=== PATIENT | male | born 1935 | race Caucasian/White ===

== ENCOUNTER 2018-12-04 07:53 | Emergency (ER) | payer MEDICARE, OTHER, SELFPAY ==
[2018-12-04 07:55] VITALS: BP 156/79; PULSE 105; RESP 16; TEMP 36.6; O2SAT 98; BMI 26.7
--- NOTE | 2018-12-04 08:08 | ED.VIS.GEN ---
History of Present Illness Chief Complaint: Constipation Informant: Patient Onset: Weeks - No bowel movement for 1 week Context: Gradual Onset Timing: Continuous Quality: No bowel movement Location: GI Current Severity: Moderate Maximum Severity: Moderate Worsened by: Nothing Relieved by: Nothing Associated Symptoms: No associated symptoms Narrative: Patient is an elderly male who presents with no bowel movement for 1 week. Patient states he is still passing gas. He states he passed gas this morning. There is no history of abdominal surgery. He is not had a bowel obstruction in the past. He denies nausea or vomiting. He denies abdominal pain or back pain. He states he took MiraLAX once a day until approximately 1 week ago. He did not take MiraLAX for 3 days. He resumed taking MiraLAX once a day. He states he has not had a bowel movement since discontinuing MiraLAX. He is still fluctuating. He has no symptoms or complaints presently other than no BM. Prior similar symptoms: No Recent Illness/Hospitalization: No Past Medical History - Allergies and Home Meds Allergies/Adverse Reactions: Allergies Penicillins [PCN] Allergy (Verified 12/04/18 07:55) Unknown Primary Care Physician: Felix Call MD [Primary Care Provider] - Surgical History: noncontributory, total hip arthroplasty Lives: Alone Smoking Status: Former smoker Alcohol: None Review of Systems General: Denies: Chills, Fever, Sweats Eyes: Denies: Visual changes - bilaterally, Blurred Vision - bilaterally, Diplopia ENT: Denies: Rhinorrhea, Sore throat Cardiovascular: Denies: Chest pain, Palpitations Respiratory: Denies: Dyspnea, Cough, Dyspnea on exertion Gastrointestinal: Reports: Constipation. Denies: Abdominal pain, Nausea, Vomiting, Diarrhea, Melena, Hematochezia Genitourinary: Denies: Dysuria, Hematuria, Frequency Musculoskeletal: Denies: Myalgias, Arthralgias, Neck pain, Back pain, Extremity Pain Skin: Denies: Rash, Wounds Neurological: Denies: Headache, Weakness, Numbness Allergy: Denies: Uticaria, Swelling of the mouth Physical Exam Vital Signs/Narrative: Vital Signs Temp Pulse Resp BP Pulse Ox 12/04/18 07:55 97.8 F 105 H 16 156/79 H 98 Inital Vital Signs reviewed: Yes General: Well nourished, Well developed, No Acute Distress Head: Normocephalic, Atraumatic Eyes: Perrl, EOMI. Negative for: Pale conjunctiva, Scleral icterus ENT: Moist mucous membranes, No rhinorrhea Neck: Supple, Nontender Cardiovascular: Regular rate, Regular rhythm, No murmurs Respiratory: No distress, CTA bilaterally, Chest nontender Abdomen: Soft, Nontender, Nondistended, No masses, Hypoactive bowel sounds. Negative for: Normal bowel sounds, Hepatomegaly, Splenomegaly, Mass Rectal: Guaiac negative, Nontender, - - Prostate is normal size and nontender. Minimal stool in rectal vault. Back: Nontender, Normal Inspection Extremities: Nontender, No edema Skin: Normal color, No rash. Negative for: Diaphoresis, Jaundice Neurological: Alert, Oriented x3, Cranial nerves II-XII grossly intact, Normal Strength, Normal Sensation Psychological: Normal affect, Normal Mood Diagnostic/Tx/Re-eval Chest X-Ray - ED: Read by ED Physician, - - 3 view abdominal series was obtained. Patient has significant amount of stool throughout the colon. There is a nonspecific gas pattern. There is no evidence of peritoneum. There is evidence of a right total hip arthroplasty. Chest portion reveals no acute process. Cardiac silhouette is slightly prominent. Mediastinum is unremarkable. Osseous structures are unremarkable. There is minimal chronic changes noted lung parenchyma. LS spine reveals degenerative changes. There also appears to be renal calculi noted on the left. - Medical Decision Making Differential diagnoses and includes constipation versus partial small bowel obstruction. We will obtain three-view x-ray for evaluation. Do not believe CT is warranted at this time since patient's abdomen is not distended nor is there any tympana. Furthermore he reports passing gas. ED Disposition - Plan for ED Patient: Disposition: Home or Assisted Living Diagnosis: Generalized abdominal pain, Obstipation Instructions: CONSTIPATION (Adult) Referrals: Felix Call MD [Primary Care Provider] - 1 Week Additional Instructions: Recommend drinking 10 ounces of mag citrate followed by 1 glass of MiraLAX 4 hours later. Continue to drink 1 glass of MiraLAX every 1-2 hours until you have results.
--- NOTE | 2018-12-04 08:35 | RAD_ITS ---
STUDY: X-RAY - ACUTE ABDOMINAL SERIES REASON FOR EXAM: Male, 83 years old. No bowel movements for one week. TECHNIQUE: Single view of the chest. Supine, and erect view(s) of the abdomen were obtained. COMPARISON: None. FINDINGS: Mild increased markings at the left lung base suggestive of linear atelectasis and/or scarring. Scattered calcified granulomas. Normal size heart. Normal mediastinum and celina. Normal visualized pulmonary arteries. There is atherosclerotic tortuosity of the aortic arch and descending thoracic aorta. There is an abundance of fecal material throughout the colon. The soft tissue structures of the abdomen and pelvis are unremarkable. There are diffuse degenerative changes of the visualized lumbar spine. Status post right hip replacement. RAD/Acute Abdomen Inc Chest IMPRESSION: Large amount of fecal material is seen in the colon down to the level of the rectum. Electronically Signed: Isaias You, at 8:56 EDT , Service support ,
== END 2018-12-04 09:25 | disposition home or self-care (01) ==
PROVIDERS: Emergency Provider Emergency Medicine; Family Provider Internal Medicine; PCP Internal Medicine
DX: K59.00 Constipation, unspecified (principal); R10.84 Generalized abdominal pain; Z87.891 Personal history of nicotine dependence
CPT/HCPCS: 74022; 99282

== ENCOUNTER 2020-06-27 08:22 | Outpatient (RCR) | payer MEDICARE, OTHER, SELFPAY | END 2020-06-27 23:59 | LOC: IMMUN 08:22 | PROVIDERS: PCP Internal Medicine; Referring Provider Family Medicine; Visit Provider Family Medicine | DX: Z23 Encounter for immunization (principal) | CPT/HCPCS: 0011A; 0012A; 91301 ==

== ENCOUNTER 2021-10-12 16:55 | Emergency (ER) | payer MEDICARE, OTHER, SELFPAY ==
[2021-10-12 16:56] VITALS: BP 150/66; PULSE 82; RESP 16; TEMP 36.7; O2SAT 95; BMI 24.1
--- NOTE | 2021-10-12 17:51 | EX.ED.GENINJ ---
HPI History of Present Illness Chief Complaint: Laceration Informant: patient Narrative Narrative: 86-year-old male presenting to the emergency department with a right thumb laceration. Patient states he was using a mandolin to cut some onions when the injury occurred. Unknown last tetanus. He states he could not get the bleeding to stop and after wrapping it multiple times with tape decided to come to the hospital. Tetanus Immunization: Unknown [facility] Medical History High cholesterol Home Medications levothyroxine 75 mcg PO DAILY 12/04/18 [History Last Taken Unknown] simvastatin 20 mg PO QHS 12/04/18 [History Last Taken Unknown] Allergy/AdvReac Type Severity Reaction Status Date / Time Penicillins [PCN] Allergy Unknown Verified 10/12/21 16:55 Social History (Updated 10/12/21 @ 17:[address] Fady Miguel DO) Smoking Status: Unknown if ever smoked substance use type: does not use ROS ROS ED Constitutional Constitutional ED: Denies chills, fever(s) or weight loss Eyes Eyes: Denies change in vision or diplopia ENT ENT ED: Denies ear pain, rhinorrhea or sore throat Cardiovascular Cardiovascular: Denies chest pain, orthopnea, palpitations or racing heartbeat Respiratory/Chest Respiratory/Chest: Denies cough, dyspnea or orthopnea Gastrointestinal Gastrointestinal: Denies abdominal pain, diarrhea, nausea or vomiting Genitourinary Genitourinary ED: Denies dysuria, hematuria or urinary frequency Musculoskeletal Musculoskeletal: Denies arthralgias or myalgias Integumentary Reports other Details: See history of present illness ; Denies abscess or rash Neurologic Neurologic: Denies headache(s) or weakness Psychiatric Psychiatric: Denies anxiety, depression, suicidal ideation or suicidal thoughts Endocrine Endocrinology: Denies polydipsia, polyphagia or polyuria Allergic/Immunologic Allergic/Immunologic ED: Denies mouth swelling, tongue swelling or urticaria EXAM Physical Exam Const Vital Signs: 10/12/21 16:56 Temperature 98.0 F Temperature Source Temporal Pulse Rate 82 Respiratory Rate 16 Blood Pressure 150/66 H Blood Pressure Mean 94 Pulse Ox 95 Oxygen Delivery Method Room Air Positive well nourished and well developed General Appearance ED: well developed HEENT Reports normocephalic, head/scalp atraumatic, TM's clear and moist mucous membranes atraumatic Tympanic Membrane ED: Yes TM's clear Eyes PERRL and EOMs intact bilaterally Neck no lymphadenopathy, supple and no JVD Resp normal respiratory effort and clear to auscultation bilaterally Cardio regular rate, regular rhythm and no murmurs GI normal to inspection, nondistended, normoactive bowel sounds and non-tender Palpation: soft Back/Spine no CVA tenderness and normal ROM Extremity Extremity Narrative: There is a 2 cm irregular laceration that is superficial in nature along the volar surface of the right thumb. There is no active bleeding. General Extremety ED: Negative for edema General Extremity: Negative for edema Neuro oriented x3 and CN's II-XII intact bilaterally Sensorium / Orientation: alert Motor Exam: strength 5/5 throughout Psych mental status grossly normal Mood & Affect: Negative for depressed or tearful Skin no rashes or lesions noted and no wounds MDM MDM MDM Narrative Medical decision making narrative: Wound was washed with Shur-Clens and saline. Homeostasis was retrieved through direct pressure. Then Dermabond was used to close the wound. Wound care discussed with patient. Adacel will be updated. Discharge Plan Triage Chief Complaint: Laceration ED Provider: Fady Miguel Dx/Rx/DC Orders Clinical Impression: Laceration of thumb Instructions: ED Laceration: Skin Adhesive Prescriptions: No Action levothyroxine 75 MCG tablet 75 mcg PO DAILY RF: 0 simvastatin 20 MG tablet 20 mg PO QHS RF: 0 Primary Care Provider: Felix Call Referrals: Felix Call MD [Primary Care Provider] - As Needed Disposition Disposition: Home, Self Care
[2021-10-12] MEDS: Diphth,Pertuss(Acell),Tet Vac 0.5 ML Vial IM (17:57)
== END 2021-10-12 18:04 | disposition home or self-care (01) ==
PROVIDERS: Emergency Provider Emergency Medicine; PCP Internal Medicine; Visit Provider Emergency Medicine
DX: S61.019A Laceration without foreign body of unspecified thumb without damage to nail, initial encounter (principal); E78.00 Pure hypercholesterolemia, unspecified; W26.8XXA Contact with other sharp object(s), not elsewhere classified, initial encounter; Y93.G3 Activity, cooking and baking; Y99.9 Unspecified external cause status; Y92.9 Unspecified place or not applicable; Z79.899 Other long term (current) drug therapy; Z23 Encounter for immunization
CPT/HCPCS: 12001; 90471; 90715; 99282

== ENCOUNTER → 2023-08-18 | Outpatient (CLI) | payer OTHER, MEDICARE, SELFPAY ==
[2023-08-18 12:01] LABS: Absolute Lymphocyte Count 1.19 X10^3/uL (0.83-4.51); Absolute Neutrophil Count 5.2 X10^3/uL (2.0-7.7); Basophil# 0.11 X10^3/uL; Basophil% 1.4 % (0-1); Eosinophil# 0.55 X10^3/uL; Eosinophils% 7.2 % (0-5); Hematocrit 46.6 % (40-54); Hemoglobin 14.3 g/dL (13.0-16.5); Lymphocyte # 1.19 X10^3/ul (0.83-4.51); Lymphocyte % 15.6 % (19-41); Mean Corp Hgb Conc 30.7 g/dL (32-36); Mean Corpuscular Hgb 28.8 pg (27.0-32.0); Mean Platelet Vol. 10.2 fl (6.2-12.0); Monocyte# 0.59 X10^3/uL; Monocyte% 7.7 % (0-10); NRBC Flagged by Analyzer 0 % (0-5); Neutrophil # 5.16 X10^3/uL (2.7-7.7); Neutrophil % 67.8 % (47-70); Platelet Count 474 K/mm3 (150-450); RBC Distribution Width CV 13.6 % (11.6-14.6); RBC Distribution Width SD 46.7 fl (35.1-43.9); Red Blood Count 4.96 M/mm3 (4.6-6.2); White Blood Count 7.6 K/mm3 (4.4-11.0)
[2023-08-18 14:15] LABS: ALB/GLOB Ratio 0.8 RATIO (0.9-2.4); AST(SGOT) 32 U/L (15-37); Alanine Aminotransfer ALT/SGPT 39 U/L (16-61); Albumin, Serum 3.4 g/dL (3.2-5.0); Alkaline Phosphatase 92 U/L (45-117); Anion Gap 7 (5-15); BUN 29 mg/dL (7-18); BUN/Creat Ratio 25.7 RATIO (10-20); Calcium,Total 9.8 mg/dL (8.5-10.1); Chloride 106 mmol/L (98-107); Cholesterol 135 mg/dL (200); Creatinine, Serum 1.13 mg/dL (0.70-1.30); EST Glomerular Filtration Rate 65 mL/min (>60); Est Glom Filt Rate - Afr Amer 79 mL/min (>60); Globulin 4.5 g/dL (2.2-4.2); Glucose 95 mg/dL (74-106); High Density Lipoprotein 68 mg/dL; Potassium 4.4 mmol/L (3.5-5.1); Protein, Total 7.9 g/dL (6.4-8.2); Sodium Level 140 mmol/L (136-145); Triglycerides 67 mg/dL; Very Low Density Lipoprotein 13 mg/dL (5-40)
== END | disposition home or self-care (01) ==
LOC: MFPLAB 09:27
PROVIDERS: PCP Internal Medicine; Visit Provider Family Medicine
DX: I10 Essential (primary) hypertension (principal); E03.9 Hypothyroidism, unspecified
CPT/HCPCS: 36415; 80053; 80061; 84443; 85025

== ENCOUNTER 2024-02-04 16:17 | Emergency (ER) | payer MEDICARE, SELFPAY ==
[2024-02-04 16:17] VITALS: BP 202/73; PULSE 102; RESP 19; TEMP 36.8; O2SAT 98; BMI 24.0
--- NOTE | 2024-02-04 16:40 | EX.ED.VISEXT ---
HPI History of Present Illness HPI Narrative: 88-year-old male was at home mika tomato juice. He said one of the palms of the jars came undone and hot tomato juice on his foot 1 to 2 hours ago. Causing secondary burn. No other injury. Chief Complaint: Burn Informant: patient Occured/Mechanism Mechanism/Context: Yes injury Comment: Secondary burn right foot. Onset/Context/Timing Onset: Today and Hours Context: Sudden Onset Timing: Continuous Quality of Pain: Sharp Current Severity: Mild Maximum Severity: Mild Associated Symptoms Associated Symptoms: Negative for Parasthesia, Weakness or Loss of Funtion Narrative Narrative: 88-year-old male secondary burn right foot. Prior similar symptoms: No Recent Illness/Hospitalization: No ROS ROS ED ROS Narrative Denies recent illness. Constitutional Constitutional ED: Denies fever(s) Eyes Eyes: Denies blurry vision Cardiovascular Cardiovascular: Denies chest pain Respiratory/Chest Respiratory/Chest: Denies cough or dyspnea Gastrointestinal Gastrointestinal: Denies abdominal pain Genitourinary Genitourinary ED: Denies dysuria or hematuria Musculoskeletal Musculoskeletal: Denies arthralgias or back pain Integumentary Denies abscess or Abrasions Neurologic Neurologic: Denies headache(s) Psychiatric Psychiatric: Denies anxiety or depression Endocrine Endocrinology: Denies polydipsia, polyphagia or polyuria Hematologic/Lymphatic Hematologic/Lymphatic: Denies easy bleeding, easy bruising or lymphadenopathy Allergic/Immunologic Allergic/Immunologic ED: Denies mouth swelling, tongue swelling or urticaria [facility] Medical History High cholesterol Home Medications ?Medication ?Instructions ?Recorded ?Last Taken ?Type levothyroxine 75 mcg tablet 75 mcg PO DAILY 12/04/18 Unknown History simvastatin 20 mg tablet 20 mg PO QHS 12/04/18 Unknown History Allergy/AdvReac Type Severity Reaction Status Date / Time Penicillins (PCN) Allergy Unknown Verified 02/04/24 16:19 Social History Smoking Status: Never smoker substance use type: does not use EXAM Physical Exam Narrative Exam Narrative: A 8-year-old male no acute distress. Vital signs stable afebrile. H EENT exam unremarkable. Lungs clear. Heart regular rhythm no murmur. Rate about 100. Chest wall and ribs nontender. Abdomen soft nontender. Moving all 4 extremities. Right foot on both the anterior medial side and anterior lateral side he has second-degree burn blisters. There is no charring. There is no secondary infection. He has normal DP pulse. He is able to wiggle his toes. He has chronic nail changes. Currently there is no cellulitis. There is no bony tenderness. There is only mild swelling. Otherwise he is awake and alert. Answering questions following commands. Const Vital Signs: 02/04/24 16:17 Temperature 98.2 F Temperature Source Temporal Pulse Rate 102 H Respiratory Rate 19 H Blood Pressure 202/73 H Blood Pressure Mean 116 Pulse Ox 98 Oxygen Delivery Method Room Air Positive well nourished and well developed; Negative for cachectic, contractures or unkempt General Appearance ED: well developed and NAD; Negative for unkempt, cachectic or contractures Nutritional Appearance: Negative for cachectic HEENT Reports moist mucous membranes normocephalic and atraumatic; Negative for trauma or tenderness Eyes PERRL and EOMs intact bilaterally Neck full ROM and no lymphadenopathy General: Negative for tenderness Resp normal respiratory effort and clear to auscultation bilaterally Cardio regular rate, regular rhythm, S1 normal heart sound, S2 normal heart sound and no murmurs Rate: Negative for bradycardia or tachycardic Rhythm: Negative for abnormal rhythm GI non-tender, non-distended and no masses Palpation: soft; Negative for tender, guarding or rebound tenderness present no CVA tenderness Back/Spine no CVA tenderness Extremity normal to inspection and full ROM Extremity Narrative: Except right foot has 2 crow second-degree to the anterior medial side and anterior lateral side. H is about 2 inches in length. No secondary cellulitis at this time. Soft tissue tenderness. Mild swelling. No bony deformity. General Extremety ED: Yes edema and tenderness General Extremity: edema Neuro oriented x3 and CN's II-XII intact bilaterally Sensorium / Orientation: alert, oriented to person, oriented to place and oriented to time; Negative for orientation impaired, confused or lethargic Motor Exam: strength 5/5 throughout Psych mental status grossly normal and thought process normal Appearance: Negative for unkempt or other Attitude: No agitated Mood & Affect: Negative for anxious Skin skin turgor normal Lesions: no lesions Rashes: no rashes MDM MDM MDM Narrative Medical decision making narrative: 88-year-old male secondary crow to his right foot. Area be cleaned and dressed. He instructed him on treatment at home with elevation, cool compresses and Tylenol for pain. Keep it clean watch for any signs of infection. Follow-up as needed. Discharge Plan Triage Chief Complaint: Burn ED Provider: Mat Lang Dx/Rx/DC Orders Clinical Impression: Burn of foot, right, second degree Instructions: ED Burn, Second-Degree Prescriptions: No Action levothyroxine 75 MCG tablet 75 mcg PO DAILY simvastatin 20 MG tablet 20 mg PO QHS Primary Care Provider: Felix Call Referrals: Felix Call MD [Primary Care Provider] - As Needed Activity Restrictions/Additional Instructions: Keep the area clean and dry. You may shower or bathe the dried off well. Antibiotic ointment to your foot they will prevent infection. Tylenol for pain. Cool compresses. Follow-up with your doctor return if you see signs of infection. Print Language: Azeri Disposition Disposition: Home, Self Care
== END 2024-02-04 17:10 | disposition home or self-care (01) ==
PROVIDERS: Emergency Provider Emergency Medicine; Visit Provider Emergency Medicine
DX: T25.221A Burn of second degree of right foot, initial encounter (principal); E78.00 Pure hypercholesterolemia, unspecified; X10.1XXA Contact with hot food, initial encounter; Y93.G9 Activity, other involving cooking and grilling
CPT/HCPCS: 99282

== ENCOUNTER 2024-02-21 08:40 | Outpatient (RCR) | payer MEDICARE, SELFPAY ==
[2024-02-21 09:24] VITALS: BP 148/71; PULSE 80; RESP 18; TEMP 35.7; BMI 22.8
== END 2024-02-27 23:59 | disposition home or self-care (01) ==
LOC: WC 08:40
PROVIDERS: PCP Family Medicine; Referring Provider Family Medicine; Visit Provider Podiatrist
DX: L97.512 Non-pressure chronic ulcer of other part of right foot with fat layer exposed (principal); E78.00 Pure hypercholesterolemia, unspecified; G62.9 Polyneuropathy, unspecified; R60.0 Localized edema; I73.89 Other specified peripheral vascular diseases
CPT/HCPCS: 11042; 99214; G0463

== ENCOUNTER 2024-03-20 08:30 | Outpatient (RCR) | payer MEDICARE, SELFPAY ==
[2024-02-28 00:27] VITALS: BP 148/71; PULSE 80; RESP 18; TEMP 35.7; BMI 22.8
[2024-02-28 08:42] VITALS: BP 134/79; PULSE 88; RESP 18; TEMP 36.3; BMI 22.8
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
[2024-03-06 13:55] VITALS: BP 151/67; PULSE 74; RESP 18; TEMP 35.9; BMI 22.8
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
--- NOTE | 2024-03-08 11:55 | WC ---
PHOTO 03/06/24 RIGHT LATERAL FOOT
[2024-03-13 08:20] VITALS: BP 127/62; PULSE 93; RESP 18; TEMP 35.6; BMI 22.8
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
[2024-03-20 08:36] VITALS: BP 143/66; PULSE 84; RESP 18; TEMP 36.1; BMI 22.8
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
== END 2024-03-27 13:26 | disposition home or self-care (01) ==
LOC: WC 08:30
PROVIDERS: PCP Family Medicine; Referring Provider Family Medicine; Visit Provider Podiatrist
DX: L97.512 Non-pressure chronic ulcer of other part of right foot with fat layer exposed (principal); T25.221A Burn of second degree of right foot, initial encounter; I10 Essential (primary) hypertension; E78.00 Pure hypercholesterolemia, unspecified; B35.1 Tinea unguium; X10.1XXA Contact with hot food, initial encounter; Z79.899 Other long term (current) drug therapy
CPT/HCPCS: 11042

== ENCOUNTER → 2024-08-07 | Outpatient (CLI) | payer MEDICARE, SELFPAY ==
[2024-08-07 12:47] LABS: Absolute Neutrophil Count 5.3 X10^3/uL (2.0-7.7); Basophil% 1.3 % (0-1); Eosinophil# 0.57 X10^3/uL; Eosinophils% 7.2 % (0-5); Hemoglobin 13.5 g/dL (13.0-16.5); Lymphocyte % 13.8 % (19-41); Mean Corp Hgb Conc 32.1 g/dL (32-36); Mean Corpuscular Volume 90.3 fL (80-94); Mean Platelet Vol. 10.4 fl (6.2-12.0); Monocyte# 0.84 X10^3/uL; Monocyte% 10.6 % (0-10); NRBC Flagged by Analyzer 0 % (0-5); Neutrophil # 5.34 X10^3/uL (2.7-7.7); Platelet Count 368 K/mm3 (150-450); RBC Distribution Width CV 14.5 % (11.6-14.6); RBC Distribution Width SD 47.8 fl (35.1-43.9); Red Blood Count 4.65 M/mm3 (4.6-6.2)
[2024-08-07 13:25] LABS: ALB/GLOB Ratio 1.2 RATIO (0.9-2.4); AST(SGOT) 29 U/L (<=37); Alanine Aminotransfer ALT/SGPT 18 U/L (<=46); Alkaline Phosphatase 79 U/L (40-129); Anion Gap 9 (5-15); BUN 24 mg/dL (4-19); BUN/Creat Ratio 21.9 RATIO (10-20); Calcium,Total 9.8 mg/dL (7.6-11.0); Carbon Dioxide 25.3 mmol/L (21.0-32.0); Chloride 104 mmol/L (98-108); Cholesterol 141 mg/dL (<=200); Creatinine, Serum 1.08 mg/dL (0.70-1.20); EST Glomerular Filtration Rate 66 (>60); Globulin 3.3 g/dL (2.2-4.2); Glucose 93 mg/dL (70-99); High Density Lipoprotein 64 mg/dL; Low Density Lipoprotein Calc. 63 mg/dL; PSA,Total - Annual Screen 0.84 ng/mL (0.02-4.00); Potassium 4.7 mmol/L (3.3-5.1); Protein, Total 7.3 g/dL (5.9-8.4); Sodium Level 138 mmol/L (133-145); Total Bilirubin 0.43 mg/dL (0.00-1.30); Triglycerides 72 mg/dL; Very Low Density Lipoprotein 14 mg/dL (5-40); Vitamin D,25 Hydroxy 93.1 ng/mL (30-100); cholesterol:hdl ratio screen 2.22
== END | disposition home or self-care (01) ==
LOC: MFPLAB 09:51
PROVIDERS: PCP Family Medicine; Referring Provider Family Medicine; Visit Provider Family Medicine
DX: I10 Essential (primary) hypertension (principal); E03.9 Hypothyroidism, unspecified; Z12.5 Encounter for screening for malignant neoplasm of prostate
CPT/HCPCS: 36415; 80053; 80061; 82306; 84153; 84443; 85025; G0103

== ENCOUNTER 2024-10-02 06:18 | Day surgery (SDC) | payer MEDICARE, SELFPAY ==
[2024-10-02] VITALS (8 sets, daily range): BP systolic 96–126; BP diastolic 42–75; PULSE 64–95; RESP 16–18; TEMP 36.1–36.2; O2SAT 94–97; BMI 22.4
[2024-10-02] MEDS: Lactated Ringers 1,000 ML 15 ML IV (06:40)
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
--- NOTE | 2024-10-02 08:26 | OP.CCLET_ITS ---
10/02/2024 Malika Khan Md Re : Colonoscopy procedure for Lester Vargas Bill This procedure was performed on Wednesday, October 02, 2024. My impressions and recommendations are as follows: Impressions : - Preparation of the colon was fair. - There was significant looping of the colon. - The examination was otherwise normal. - No specimens collected. Recommendations : - Discharge patient to home (ambulatory). - High fiber diet. - Repeat colonoscopy in 5 years for surveillance. - Return to my office PRN. - Continue present medications. My findings are described in the full procedure note, which is enclosed. If I can be of further assistance, please feel free to contact me at . Sincerely, Darell Watts MD 10/02/2024 8:25:42 AM This report has been signed electronically.
--- NOTE | 2024-10-02 08:26 | PCM.POST.ANE ---
Anesthesia: Postop Eval I Current Vital Signs Temperature: 97.2 F Pulse Rate: 74 Blood Pressure: 100/67 Respiratory Rate: 16 Pulse Ox: 97 Oxygen Delivery Method: Room Air Assessment Airway patent: Yes Spontaneous unlabored respirations: Yes Mental status: Awake nausea: No Vomiting: No Anesthesia Complication: No Fluid Hydration Crystalloid volume administer (ml): 500 Total IV fluid infused: 500 Progress Note Anesthesia document: Postop Eval 1 completed: Yes
--- NOTE | 2024-10-02 08:26 | OP.COLON_ITS ---
Patient Name: Lester Araiza Procedure Date: 10/02/2024 7:38 AM Date of : 1935 Age: 89 Procedure: Colonoscopy Indications: High risk colon cancer surveillance: Personal history of colonic polyps Providers: Darell Watts MD Referring MD: Malika Khan Md Medicines: Monitored Anesthesia Care Patient Profile: Refer to note in patient chart for documentation of history and physical. Last Colonoscopy: 10 years ago. Complications: No immediate complications. Estimated blood loss: None. Procedure: Pre-Anesthesia Assessment: - Prior to the procedure, a History and Physical was performed, and patient medications and allergies were reviewed. The patient's tolerance of previous anesthesia was also reviewed. The risks and benefits of the procedure and the sedation options and risks were discussed with the patient. All questions were answered, and informed consent was obtained. Prior Anticoagulants: The patient has taken no anticoagulant or antiplatelet agents. ASA Grade Assessment: III - A patient with severe systemic disease. After reviewing the risks and benefits, the patient was deemed in satisfactory condition to undergo the procedure. After I obtained informed consent, the scope was passed under direct vision. Throughout the procedure, the patient's blood pressure, pulse, and oxygen saturations were monitored continuously. The adult colonoscope was introduced through the anus and advanced to the cecum, identified by appendiceal orifice and ileocecal valve. The ileocecal valve, appendiceal orifice, and rectum were photographed. The entire colon was well visualized. The colonoscopy was somewhat difficult due to significant looping. Successful completion of the procedure was aided by applying abdominal pressure. The patient tolerated the procedure well. The quality of the bowel preparation was fair. Moderate Sedation: See the other procedure note for documentation of moderate sedation with intraservice time. Scope In: 7:49:55 AM Scope Withdrawal Time 0 hours 11 minutes 58 seconds Scope Out: 8:17:20 AM Total Procedure Duration Time 0 hours 27 minutes 25 seconds Findings: The perianal and digital rectal examinations were normal. The sigmoid colon revealed moderately excessive looping. Advancing the scope required using manual pressure. The exam was otherwise without abnormality. Impression: - Preparation of the colon was fair. - There was significant looping of the colon. - The examination was otherwise normal. - No specimens collected. Recommendation: - Discharge patient to home (ambulatory). - High fiber diet. - Repeat colonoscopy in 5 years for surveillance. - Return to my office PRN. - Continue present medications. Procedure Code(s): --- Professional --- 94936, Colonoscopy, flexible; diagnostic, including collection of specimen(s) by brushing or washing, when performed (separate procedure) Diagnosis Code(s): --- Professional --- Z86.010, Personal history of colonic polyps CPT copyright 2021 [employer]. All rights reserved. The codes documented in this report are preliminary and upon automated equipment engineer technician review may be revised to meet current compliance requirements. Darell Watts MD 10/02/2024 8:25:42 AM This report has been signed electronically. Number of Addenda: 0 Note Initiated On: 10/02/2024 7:38 AM
--- NOTE | 2024-10-02 08:46 | PCM.POSTANE2 ---
Anesthesia Postop Eval I Sum Postop Eval Completion status Anesthesia document: Postop Eval 1 completed: Yes Anesthesia Postop Eval I Summary Anesthesia Postop Eval I Summary: Anesthesia Postop Eval I: Assessment Summary Airway patent Yes 10/02/24 08:26 [email or web address] Spontaneous unlabored Yes 10/02/24 08:26 [email or web address] respirations Mental status Awake 10/02/24 08:26 [email or web address] nausea No 10/02/24 08:26 [email or web address] Vomiting No 10/02/24 08:26 [email or web address] Anesthesia Postop Eval I: Fluid Summary Crystalloid volume administer 500 10/02/24 08:26 [email or web address] (ml) Colloids volume administered ( ml) Blood Product volume administered (ml) Total IV fluid infused 500 10/02/24 08:26 [email or web address] Anesthesia Postop Eval I: Summary Notes Anesthesia Complication No 10/02/24 08:26 [email or web address] Anesthesia Complication Comment: Post-operative progress note Anesthesia: Postop Eval II Evaluation Mental status: Awake and Calm Pain Level: 0 nausea: No Vomiting: No Complications Anesthesia Complication: No
== END 2024-10-02 09:19 | disposition home or self-care (01) ==
LOC: EN 06:20 → AC 06:21
PROVIDERS: PCP Family Medicine; Referring Provider Family Medicine; Visit Provider Surgery
PROC: 0DJD8ZZ Inspection of Lower Intestinal Tract, Via Natural or Artificial Opening Endoscopic (ICD-10-PCS; CPT 45378; principal; 2024-10-02 07:25)
DX: Z12.11 Encounter for screening for malignant neoplasm of colon (principal); I10 Essential (primary) hypertension; E78.00 Pure hypercholesterolemia, unspecified; Z86.0100 Personal history of colon polyps, unspecified; Z79.899 Other long term (current) drug therapy; Z79.890 Hormone replacement therapy
CPT/HCPCS: G0105; J2405